=== PATIENT | male | born 1960 | race Caucasian/White ===

== ENCOUNTER 2020-03-27 11:06 | Emergency (ER) | payer OTHER ==
[2020-03-27] MEDS ORDERED: Bacitracin Oint 1 GM U/D Packet TOP ONE (11:51)
[2020-03-27] MEDS ORDERED: Silver Sulfadiazine 1% Crm 50 GM Tube TOP ONE (11:51)
--- NOTE | 2020-03-27 11:56 | EDM.PDOC ---
ED HPI GENERAL MEDICAL PROBLEM - General Chief Complaint: Burn Stated Complaint: INJURY TO BOTH PALMS Time Seen by Provider: 03/27/20 11:48 Source of Information: Reports: Patient, Family, RN Notes Reviewed History Limitations: Reports: No Limitations - History of Present Illness INITIAL COMMENTS - FREE TEXT/NARRATIVE: Clint presents today with complaints of alaniz to bilateral palmar surface of hands and abrasions to bilateral knees. He states he was looking for a leak on his roof, he touched the tar shingles, developed alaniz and slid down off the roof. He reports open and intact blisters to bilateral hands, abrasions to bilateral knees. He denies any other injury. Last tDap 2011. - Related Data Allergies Allergy/AdvReac Type Severity Reaction Status Date / Time No Known Allergies Allergy Verified 03/27/20 11:31 Home Meds: Home Meds atorvaSTATin [Lipitor] 03/27/20 [History] Past Medical History Cardiovascular History: Reports: High Cholesterol Social & Family History - Tobacco Use Smoking Status *Q: Never Smoker ED ROS GENERAL - Review of Systems Review Of Systems: See Below Constitutional: Reports: No Symptoms HEENT: Reports: No Symptoms Respiratory: Reports: No Symptoms Cardiovascular: Reports: No Symptoms GI/Abdominal: Reports: No Symptoms Musculoskeletal: Reports: Hand Pain, Other (blisters to bilateral hands) Skin: Reports: Wound, Burn(s), Other (4 to 5 cm open blister ) ED EXAM, SKIN/RASH Exam: See Below Exam Limited By: No Limitations General Appearance: Alert, WD/WN, No Apparent Distress Eye Exam: Bilateral Eye: Normal Inspection, PERRL Head: Atraumatic, Normocephalic Neck: Normal Inspection, Supple, Non-Tender, Full Range of Motion Respiratory/Chest: No Respiratory Distress, Lungs Clear, Normal Breath Sounds, No Accessory Muscle Use, Chest Non-Tender Cardiovascular: Normal Peripheral Pulses, Regular Rate, Rhythm, No Edema, No Murmur, No Rub Peripheral Pulses: 2+: Radial (L), Radial (R) Extremities: Normal Range of Motion, Normal Capillary Refill, Other (Bilateral hand pain to palmar surface, friction/burn blisters - open to palmar surface bilateral hands. 4cm area open. Small intact blisters to tips of right 2,3,4,5 fingers 0.5 to 1cm. No eschar noted. Capillary refill, sensation intact to palmar surface and fingers bilaterally. Superficial abrasions to bilateral knees, no bleeding noted. ) Neurological: Alert, Oriented, CN II-XII Intact, Normal Cognition, Normal Reflexes, No Motor/Sensory Deficits Psychiatric: Normal Affect, Normal Mood Skin: Warm, No Rash, Wound/Incision Location, Skin: Other (bilateral hands, bilateral knees as described ) Associated features: Tenderness Lymphatic: No Adenopathy Course - Vital Signs Last Recorded V/S: Last Vital Signs Temp 35.9 C L 03/27/20 11:36 Pulse 69 03/27/20 11:36 Resp 16 03/27/20 11:36 BP 156/85 H 03/27/20 11:36 Pulse Ox 95 03/27/20 11:36 - Orders/Labs/Meds Meds: Medications Discontinued Medications Generic Name Dose Route Start Last Admin Trade Name Haile PRN Reason Stop Dose Admin Bacitracin 1 dose 03/27/20 11:51 03/27/20 12:22 Bacitracin Oint 1 Gm TOP 03/27/20 11:52 1 dose ONETIME ONE Administration Silver Sulfadiazine 1 gm 03/27/20 11:51 03/27/20 12:21 Silvadene 1% Cream 50 Gm TOP 03/27/20 11:52 1 gm ONETIME ONE Administration - Re-Assessments/Exams Free Text/Narrative Re-Assessment/Exam: Bilateral hands soaked in sterile water, hibaclens. No foreign bodies noted to open blisters. Silvadene applied to palmar surface of hands, skin intact over blisters for protective barrier Non-adherent pad and kerlix dressing applied. Patient tolerated well Dressing and care reviewed. Patient and his in agreement with plan. Departure - Departure Time of Disposition: 12:09 Disposition: Home, Self-Care 01 Condition: Good Clinical Impression: Second degree burn of palm of left hand, Second degree burn of palm of right hand, Abrasion of knee, bilateral - Discharge Information *PRESCRIPTION DRUG MONITORING PROGRAM REVIEWED*: Not Applicable *COPY OF PRESCRIPTION DRUG MONITORING REPORT IN PATIENT MARCO: Not Applicable Instructions: Burn Care, Adult, [id number] Referrals: PCP,None [Primary Care Provider] - Forms: ED Department Discharge Additional Instructions: Keep bilateral hands clean and dry. Cleanse hands twice per day with water and soap, pat dry, let air dry Then Apply silvadene to bilateral hands twice per day. Cover by a no-stick and padded dressing for comfort. Dressing until healed. Take cephalexin 1000mg PO BID for infection if signs of infection develop. Bacitracin ointment to bilateral knees as needed. Take ibuprofen and tylenol as needed for pain. Hydrocodone 5/325mg, one tablet by mouth twice per day as needed #4. Follow up with primary as needed in 7 days for recheck. Sepsis Event Note (ED) - Evaluation Sepsis Screening Result: No Definite Risk - Focused Exam Vital Signs: Vital Signs Temp Pulse Resp BP Pulse Ox 03/27/20 11:36 35.9 C L 69 16 156/85 H 95 03/27/20 11:22 35.9 C L 69 16 156/85 H 95 - Assessment/Plan Assessment:: Second degree burn of palm of left hand, Second degree burn of palm of right hand, Abrasion of knee, bilateral Plan: Keep bilateral hands clean and dry. Cleanse hands twice per day with water and soap, pat dry, let air dry Then Apply silvadene to bilateral hands twice per day. Cover by a no-stick and padded dressing for comfort. Dressing until healed. Take cephalexin 1000mg PO BID for infection if signs of infection develop. Bacitracin ointment to bilateral knees as needed. Take ibuprofen and tylenol as needed for pain. Hydrocodone 5/325mg, one tablet by mouth twice per day as needed #4. Follow up with primary as needed in 7 days for recheck.
== END 2020-03-27 12:23 | disposition home or self-care (01) ==
LOC: JP.ED 11:06
DX: T23.251A Burn of second degree of right palm, initial encounter (principal); T23.252A Burn of second degree of left palm, initial encounter; S80.212A Abrasion, left knee, initial encounter; S80.211A Abrasion, right knee, initial encounter; E78.00 Pure hypercholesterolemia, unspecified; Z79.899 Other long term (current) drug therapy; X19.XXXA Contact with other heat and hot substances, initial encounter
CPT/HCPCS: 16020; 99283; A9270